=== PATIENT | male | born 1955 | race Two or more races ===

== ENCOUNTER 2024-02-04 15:41 | Emergency (ER) | payer BC ==
[~2024-02-04] VITALS: Ht 188 cm; Wt 163.3 kg
[2024-02-04] MEDS ORDERED: GRALISE600 MG (16:18)
[2024-02-04] MEDS ORDERED: METFORMIN HCL1000 M2 (16:18)
[2024-02-04] MEDS ORDERED: FENOFIBRATE40 MG PO (16:19)
[2024-02-04] MEDS ORDERED: PROSTATA (16:20)
[2024-02-04] MEDS ORDERED: CEFTRIAXONE SODIUM 2,000 MG VIAL IV STA (18:37)
[2024-02-04] MEDS ORDERED: CEFTRIAXONE SODIUM 2,000 MG VIAL ONE (18:46)
[2024-02-04 19:31] LABS: HEMATOCRIT 41.3 % (39.0-48.0); HEMOGLOBIN 13.8 g/dL (13-16.00); MEAN CELL VOLUME 86.3 fL (80.0-100.00); MEAN CORPUSCULAR HEMOGLOBIN 28.8 pg (27.00-32.0); MEAN CORPUSCULAR HGB CONC 33.3 g/dl (32.0-36.0); PLATELET COUNT 285 K/uL (150-450); RED BLOOD COUNT 4.79 M/uL (4.00-6.00); RED CELL DISTRIBUTION WIDTH 14.8 % (11.5-14.5)
[2024-02-04 19:49] LABS: CALCIUM 9.2 mg/dL (8.5-10.1); CREATININE SERUM 0.85 mg/dL (0.70-1.30); GFR 90.18; POTASSIUM 4.17 mEq/L (3.5-5.1)
== END 2024-02-04 20:38 | disposition home or self-care (01) ==
LOC: ER 15:42
PROVIDERS: General Practice
DX: L08.9 Local infection of the skin and subcutaneous tissue, unspecified (principal); T14.8XXA Other injury of unspecified body region, initial encounter; Z88.2 Allergy status to sulfonamides; Z91.013 Allergy to seafood